=== PATIENT | male | born 1940 | race Caucasian/White ===

== ENCOUNTER 2019-05-28 20:32 | Emergency (ER) | payer MEDICARE, OTHER ==
[~2019-05-28] VITALS: Ht 182.9 cm; Wt 85.5 kg
[2019-05-28 20:34] VITALS: Ht 182.9 cm; Wt 85.5 kg
[2019-05-28] MEDS ORDERED: VASOTEC20 MG PO (20:37)
[2019-05-28] MEDS ORDERED: COREG6.25 MG (20:37)
[2019-05-28] MEDS ORDERED: GLUCOPHAGE500 MG PO (20:37)
[2019-05-28] MEDS ORDERED: LIPITOR80 MG PO (20:37)
[2019-05-28] MEDS ORDERED: BAYER CHEWABLE81 MG PO (20:38)
[2019-05-28 21:07] LABS: BASOPHILS 0.3 % (0-2); EOSINOPHILS 0.8 % (0-7); HEMATOCRIT 38.1 % (42.0-54.0); HEMOGLOBIN 12.8 g/dL (13.5-17.5); IMMATURE GRANULOCYTES 0.2 % (0-5); LYMPHOCYTES 14.9 % (15-50); MCH 30.4 pg (26.0-34.0); MCHC 33.6 g/dL (31.0-37.0); MCV 90.5 fL (80.0-100.0); MEAN PLATELET VOLUME 10.1 fL (7.4-10.4); MONOCYTES 12.7 % (2-11); NEUTROPHILS 71.1 % (40-80); PLATELET COUNT 196 10x3/uL (130-400); RBC 4.21 10x6/uL (4.20-6.10); RDW 13.2 % (11.5-14.5); WBC 12.3 10x3/uL (4.8-10.8)
[2019-05-28 21:15] LABS: APTT 28.8 SECONDS (22.8-39.4); INR 1.08 (0.85-1.17); PROTIME 13.5 SECONDS (11.6-15.0)
[2019-05-28 21:17] LABS: CALC OSMOLALITY 279 mosm/kg (275-300); CALCIUM 9.4 mg/dL (8.5-10.1); CARBON DIOXIDE 29.1 mmol/L (21.0-32.0); CHLORIDE - SERUM 103 mmol/L (98-107); CREATININE - SERUM 1.2 mg/dL (0.6-1.3); GLUCOSE 100 mg/dL (74-106); POTASSIUM - SERUM 4.5 mmol/L (3.5-5.1); SODIUM 139 mmol/L (136-145); UREA NITROGEN 19 mg/dL (7-18); eGFR NON AFRICAN AMERICAN 62 mL/min (90-120)
[2019-05-28 21:28] LABS: APPEARANCE CLEAR (CLEAR); BILIRUBIN NEGATIVE (NEGATIVE); COLOR YELLOW (YELLOW); GLUCOSE NEGATIVE (NEGATIVE); KETONE NEGATIVE (NEGATIVE); NITRITE NEGATIVE (NEGATIVE); PROTEIN NEGATIVE (NEGATIVE); UROBILINOGEN NORMAL (NORMAL)
[2019-05-28 21:32] LABS: ALBUMIN 3.8 g/dL (3.4-5.0); ALKALINE PHOSPHATASE 77 U/L (46-116); ALT (SGPT) 46 U/L (10-68); BILIRUBIN - TOTAL 0.61 mg/dL (0.2-1.3); CKMB 0.9 U/L (0.0-3.6); CREATINE KINASE 124 UL (21-232); MAGNESIUM - SERUM 1.7 mg/dL (1.8-2.4); PROTEIN - SERUM 7.6 g/dL (6.4-8.2); THYROID STIMULATING HORMONE 0.76 uIU/mL (0.36-3.74)
[2019-05-28 21:33] LABS: TROPONIN-I < 0.017 ng/mL (0.000-0.060)
[2019-05-28 21:45] LABS: UDS - AMPHET NEGATIVE QUAL (NEGATIVE); UDS - BARB NEGATIVE QUAL (NEGATIVE); UDS - BENZO NEGATIVE QUAL (NEGATIVE); UDS - COCAINE NEGATIVE QUAL (NEGATIVE); UDS - OPIATE NEGATIVE QUAL (NEGATIVE); UDS - PCP NEGATIVE QUAL (NEGATIVE); UDS - THC NEGATIVE QUAL (NEGATIVE)
[2019-05-29 00:14] VITALS: BP 156/66
== END 2019-05-29 00:14 | disposition home or self-care (01) ==
LOC: D.ER 20:32
PROVIDERS: Family Medicine
DX: G45.9 Transient cerebral ischemic attack, unspecified (principal); R27.0 Ataxia, unspecified; E11.9 Type 2 diabetes mellitus without complications; Z79.84 Long term (current) use of oral hypoglycemic drugs; I10 Essential (primary) hypertension

== ENCOUNTER → 2019-08-17 10:06 | Outpatient (CLI) | payer MEDICARE, OTHER ==
[2019-05-28 20:34] VITALS: BMI 25.5
[~2019-08-17 10:06] MED LIST: BAYER CHEWABLE81 MG PO; COREG6.25 MG; GLUCOPHAGE500 MG PO; LIPITOR80 MG PO; VASOTEC20 MG PO
--- NOTE | 2019-08-20 11:54 | EC ---
PATIENT:CARISSA JHA DATE OF SERVICE: 08/17/19 SEX: M MEDICAL RECORD: [id number] DATE OF : 42 LOCATION:[facility] AGE OF PATIENT: 79 ADMISSION DATE: 08/17/19 REFERRING PHYSICIAN: INTERPRETING PHYSICIAN: VICTORIA GREEN MD ECHOCARDIOGRAM REPORT ECHO CHARGES 4 ECHO COMPLETE Date: 08/17/19 CLINICAL DIAGNOSIS: BUBBLE STUDY TO ASSESS FOR ASD/VSD. DUE TO RECENT TIA, HX OF CAD/HTN ECHOCARDIOGRAPHIC MEASUREMENTS (adult normal given) AC root (d.<3.7cm) 3.4 cm LV Septum d (<1.2 cm> 1.5 cm Valve Excursion 1.8 cm LV Septum (systole) 1.6 cm Left Atria (s.<4.0cm> 3.8 cm LVPW d(<1.2cm) 1.4 cm RV (d.<2.3cm) 3.7 cm LVPW (sytole) 1.9 cm LV diastole(<5.6CM) 5.5 cm MV E-F(>70mm/sec) cm LV systole 3.4 cm LVOT Diameter 2.1 cm MV exc.(>10mm) 1.3 cm Est.ejection fraction (50-75%) % DOPPLER: LVIT cm/sec A 108.0cm/sec E 64.0 cm/sec LA cm/sec RVSP 24 mmHg LVOT 94 cm/sec AOP1/2T m/s Asc. Ao 90 cm/sec RVOT 85 cm/sec RA cm/sec PA 181 cm/sec AV Gradient Peak 3.21 mmHg AV Mean 1.59 mmHg AV Area 4.3 cm MV Gradient Peak 6.74 mmHg MV Mean 2.15 mmHg MV Area cm COMMENTS: [employer]: 2 ROB TAVAREZ Automobile Mechanic Motor: 1 Dr. Green TAPE# PACS Pericardial Effusion N DATE OF SERVICE: FINDINGS: 1. Left ventricular chamber size is within normal limits. Left ventricular systolic function is normal. Overall ejection fraction estimated at 65%. 2. Left atrium is within normal limits. Right atrium and right ventricular chamber sizes are mildly dilated. 3. Valvular structures have normal structure and motion. 4. Doppler interrogation reveals mild aortic insufficiency, mild mitral ECHOCARDIOGRAM REPORT [id number] CARISSA JHA regurgitation, mild tricuspid regurgitation, no other valvular insufficiency or stenosis. Pulmonary systolic pressure estimated at 24 mmHg. 5. Bubble study was performed. This is normal. No evidence of xifc-ix-themn or rxzyp-wa-yqqd shunt. TRANSINT:[id number] Voice Confirmation ID: [id number] DOCUMENT ID: [id number] VICTORIA GREEN MD at 1154 CC: [id number] DICTATION DATE: 08/17/19 1447 COUNTY ADMINISTRATOR: 08/18/19 0014 DEP CLI 08/17/19 [id number] [place] [address]
== END | disposition home or self-care (01) ==
LOC: D.HCCECHO 10:06
PROVIDERS: ATTEND Internal Medicine Interventional Cardiology
DX: I10 Essential (primary) hypertension (principal)

== ENCOUNTER 2020-03-17 06:00 | Day surgery (SDC) | payer MEDICARE, OTHER ==
[~2020-03-17] VITALS: Ht 182.9 cm; Wt 84.1 kg
--- NOTE | ~2020-03-17 | OP ---
PATIENT NAME: CARISSA JHA MEDICAL RECORD: [id number] :42 LOCATION:[facility] ADMISSION DATE: SURGEON: EYAD VELASQUEZ DO DATE OF OPERATION: 03/17/2020 PROCEDURE: Colonoscopy with polypectomies. INDICATION FOR PROCEDURE: Positive stool guaiac, weight loss. SCOPE: Olympus video pediatric colonoscope. MEDICATIONS: Propofol 800 mg IV per anesthesia. WITHDRAWAL TIME: 51 minutes. ESTIMATED BLOOD LOSS: Minimal. COMPLICATIONS: None immediate. FINDINGS: Informed consent was given. The patient was made comfortable with the above medication. After reaching an adequate level of sedation by slow IV push, the patient was placed on his left side. A digital rectal examination was performed and revealed some prostatic hyperplasia. The endoscope was then advanced under direct visualization through the rectum to the cecum, confirmed by the presence of the appendiceal orifice and ileocecal valve. The endoscope was slowly withdrawn and the mucosa was carefully examined. The prep quality was good. There were multiple polyps visualized on today's examination. The 2 largest polyps were located in the cecum. They were both flat and large, ranging in size from 1.5 to 2.5 cm. They were both injected with Eleview for a cushion followed by EMR technique with a hot snare as well as utilization of hot forceps for assistance in removal of all the tissue and cauterization. The defect left behind by the larger of the 2 polyps was closed using 4 endoclips successfully. In the ascending colon, there were 3 separate polyps, which were benign appearing and sessile, ranging in size from 2 to 4 mm in diameter. They were all removed using hot forceps. In the transverse colon, there was a benign-appearing sessile polyp, which measured approximately 4-5 mm in diameter. It was removed using a hot snare. In the descending colon, there was a benign-appearing sessile polyp, which measured approximately 5 mm in diameter. It was removed using a hot snare. In the sigmoid colon, there was a large pedunculated polyp, which measured approximately 1 cm in size. It was removed using a hot snare. This was likely the site causing intermittent bleeding as the tissue from the pedunculated stalk appeared somewhat hemorrhagic. There was evidence of moderate diverticulosis involving the descending and sigmoid colon. Retroflexion was performed in the rectum with visualization of grade I internal hemorrhoids without bleeding. The endoscope was withdrawn from the patient. The patient tolerated the procedure well and there were no immediate complications. IMPRESSION: 1. Multiple polyps as described above, removed using a combination of endoscopic mucosal resection technique utilizing injection of Eleview followed by hot snare polypectomy. Hot forceps were also used for some polyp removal. 2. Moderate diverticulosis of the descending and sigmoid colon. 3. Grade I internal hemorrhoids without bleeding. OPERATIVE REPORT [id number] CARISSA JHA PLAN AND RECOMMENDATIONS: 1. Discharge home when recovery parameters are met. 2. Follow up biopsy specimen results. 3. High-fiber diet. 4. Continue current medications. 5. Recall colonoscopy in 1 year. NTS:[id number] Voice Confirmation ID: [id number] DOCUMENT ID: [id number] EYAD VELASQUEZ DO CC: [id number] DICTATION DATE: 03/17/20939 NUT STEAMER: 03/17/201914 [facility] 03/17/20 [facility] [address] [place] [address]
[2020-03-17 06:28] LABS: HEMATOCRIT 40.3 % (42.0-54.0); HEMOGLOBIN 13.6 g/dL (13.5-17.5); MCH 31.1 pg (26.0-34.0); MCHC 33.7 g/dL (31.0-37.0); MCV 92.2 fL (80.0-100.0); RBC 4.37 10x6/uL (4.20-6.10); RDW 12.8 % (11.5-14.5); WBC 5.4 10x3/uL (4.8-10.8)
[2020-03-17] MEDS ORDERED: PIOGLITAZONE15 MG PO (07:13)
[2020-03-17 07:20] VITALS: BP 145/66; Ht 182.9 cm; Wt 84.1 kg
--- NOTE | 2020-03-17 07:47 | NUR ---
IV STARTED IN RIGHT FOREARM WITH 22G ANGIOCATH, TOLERATED WELL, OP SITE APPLIED
--- NOTE | 2020-03-17 10:20 | NUR ---
RIGHT WRIST PIV DC'D WITH TIP INTACT. PATIENT DRESSING IN PERSONAL CLOTHING. 1024 DISCHARGE INSTRUCTIONS REVIEWED WITH PATIENT AND SPOUSE, DISCHARGED HOME VIA WHEELCHAIR TO PRIVATE VEHICLE AT 1025
== END 2020-03-17 10:25 | disposition home or self-care (01) ==
LOC: D.OPS 06:00
PROVIDERS: Anesthesiology; ATTEND Internal Medicine Gastroenterology
DX: R63.4 Abnormal weight loss (principal); R19.5 Other fecal abnormalities; K63.5 Polyp of colon; K57.90 Diverticulosis of intestine, part unspecified, without perforation or abscess without bleeding; K64.0 First degree hemorrhoids; R11.2 Nausea with vomiting, unspecified; R13.10 Dysphagia, unspecified; R12 Heartburn

== ENCOUNTER 2020-04-04 06:10 | Day surgery (SDC) | payer MEDICARE, OTHER ==
[~2020-04-04] VITALS: Ht 182.9 cm; Wt 84.1 kg
[~2020-04-04 06:10] MED LIST changes: +PIOGLITAZONE15 MG PO
[2020-04-04 06:23] LABS: BASOPHILS 1.3 % (0-2); EOSINOPHILS 4.5 % (0-7); HEMATOCRIT 38.9 % (42.0-54.0); HEMOGLOBIN 13.3 g/dL (13.5-17.5); IMMATURE GRANULOCYTES 0.2 % (0-5); LYMPHOCYTES 29.4 % (15-50); MCH 31.1 pg (26.0-34.0); MCHC 34.2 g/dL (31.0-37.0); MCV 91.1 fL (80.0-100.0); MEAN PLATELET VOLUME 9.4 fL (7.4-10.4); MONOCYTES 13.1 % (2-11); NEUTROPHILS 51.5 % (40-80); PLATELET COUNT 145 10x3/uL (130-400); RBC 4.27 10x6/uL (4.20-6.10); RDW 12.7 % (11.5-14.5); WBC 6.2 10x3/uL (4.8-10.8)
[2020-04-04 06:44] LABS: ANION GAP 10.2 mmol/L (8-16); CALCIUM 8.8 mg/dL (8.5-10.1); CARBON DIOXIDE 28.2 mmol/L (21.0-32.0); CREATININE - SERUM 1.4 mg/dL (0.6-1.3); POTASSIUM - SERUM 4.4 mmol/L (3.5-5.1)
[2020-04-04 06:45] LABS: APTT 28.6 SECONDS (22.8-39.4); INR 1.05 (0.85-1.17); PROTIME 13.6 SECONDS (11.6-15.0)
[2020-04-04] MEDS ORDERED: STARLIX60 MG PO (06:57)
[2020-04-04 07:00] VITALS: Ht 182.9 cm; Wt 84.1 kg
--- NOTE | 2020-04-04 08:53 | NUR ---
0845 IV DC'D. CATHETER TIP INTACT. NO BLEEDING AT SITE. BANDAID APPLIED.
--- NOTE | 2020-04-05 08:39 | OP ---
PATIENT NAME: CARISSA JHA MEDICAL RECORD: [id number] :42 LOCATION:[facility] ADMISSION DATE: SURGEON: EYAD VELASQUEZ DO DATE OF OPERATION: 04/04/2020 PROCEDURE: EGD with biopsies and balloon dilation. INDICATIONS FOR PROCEDURE: Dysphagia, heartburn, nausea and vomiting. SCOPE: Olympus video gastroscope. MEDICATIONS: Propofol 200 mg IV per anesthesia. ESTIMATED BLOOD LOSS: Minimal. COMPLICATIONS: None. FINDINGS AND DESCRIPTION OF PROCEDURE: Informed consent was given. The patient was made comfortable with the above medication. After reaching an adequate level of sedation by slow IV push, the patient was placed on his left side. The endoscope was advanced under direct visualization through the mouth to the second portion of the duodenum with ease. The esophagus appeared normal down to the GE junction. Cold forceps biopsies were taken from the midesophagus to rule out the presence of eosinophils regarding the patient's dysphagia. At the GE junction, there were changes consistent with LA class A reflux-induced esophagitis and possibly short segment Austin's. Cold forceps, biopsies were taken from the squamocolumnar junction to submit for histopathology. Also, at the GE junction, there was some stenosis. An 18-20 mm dilating balloon was placed in the working channel of the endoscope and the stenosis was dilated up to 19-mm maximum diameter. The endoscope was advanced beyond the GE junction into the stomach and retroflexed to view the cardia and fundus. There was no hiatal hernia appreciated. Throughout the stomach, there were diffuse changes of mild chronic gastritis consisting of some erythema and congestion or edema. Cold forceps biopsies were taken from the antrum and incisura to submit for histopathology and to rule out the presence of H. pylori. The endoscope was advanced beyond the pylorus into the duodenum, which appeared normal to the second portion. The endoscope was then withdrawn from the patient. The patient tolerated the procedure well and there were no complications. IMPRESSIONS: 1. 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 2. 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 3. Mild chronic gastritis changes consisting of erythema and congestion. PLAN AND RECOMMENDATIONS: 1. Discharge home when recovery parameters are met. 2. Follow up biopsy specimen results. 3. GERD diet and reflux precautions. 4. Continue current medications. 5. Add omeprazole 40 mg daily in the a.m. times 60 days. 6. If the patient's dysphagia continues, consider a modified barium swallow as this is oropharyngeal dysphagia involving passage of a food bolus or medications through the throat and swallowing. 7. Follow up in GI clinic in 2 months. OPERATIVE REPORT [id number] CARISSA JHA TRANSINT:[id number] Voice Confirmation ID: [id number] DOCUMENT ID: [id number] EYAD VELASQUEZ DO at 0839 CC: [id number] DICTATION DATE: 04/04/20814 TAXI SERVICER: 04/04/2026 [facility] 04/04/20 [facility] [address] [place] [address]
== END 2020-04-04 08:54 | disposition home or self-care (01) ==
LOC: D.OPS 06:10
PROVIDERS: ATTEND Internal Medicine Gastroenterology
DX: R13.10 Dysphagia, unspecified (principal); R12 Heartburn; R11.2 Nausea with vomiting, unspecified; K21.00 Gastro-esophageal reflux disease with esophagitis, without bleeding; K29.70 Gastritis, unspecified, without bleeding